=== PATIENT | male | born 1960 | race Caucasian/White ===

== ENCOUNTER 2019-08-03 21:22 | Inpatient (IN) | payer OTHER ==
[~2019-08-03] VITALS: Ht 167.6 cm; Wt 112.5 kg
[2019-08-03 21:28] VITALS: Ht 167.6 cm; Wt 112.5 kg
[2019-08-03 22:21] LABS: BASOPHIL % 0.4 % (0-2); PLATELET COUNT 192 x10^3mcL (130-400); RED CELL DISTRIBUTION WIDTH 15.2 % (11.5-14.5)
[2019-08-03 22:59] LABS: CALCIUM 8.1 mg/dL (8.5-10.1); CARBON DIOXIDE 26.8 mmol/L (21-32); CHLORIDE SERUM 106 mmol/L (98-107); CREATININE SERUM 1.1 mg/dL (0.7-1.3); GFR1 > 60 mL/min; GLUCOSE SERUM 130 mg/dL (74-106); POTASSIUM SERUM 3.7 mmol/L (3.5-5.1); SODIUM SERUM 144 mmol/L (136-145)
[2019-08-03 23:04] LABS: ALKALINE PHOSPHATASE 110 U/L (46-116); ALT/SGPT 29 U/L (16-63); AST/SGOT 21 U/L (15-37); BILIRUBIN TOTAL 0.4 mg/dL (0.20-1.00); TOTAL PROTEIN, SERUM 7.6 g/dL (6.4-8.2)
[2019-08-03 23:05] LABS: ALBUMIN 3.3 g/dL (3.4-5.0)
[2019-08-03 23:48] LABS: UA SPECIFIC GRAVITY 1.025 (1.005-1.035); microscopic required? YES; urine erythrocyte TRACE (NEGATIVE)
[2019-08-04] VITALS (9 sets, daily range): BP systolic 112–171; BP diastolic 46–84
[2019-08-04] MEDS ORDERED: ATENOLOL25 MG PO
[2019-08-04 01:36] LABS: MAGNESIUM 1.9 mg/dL (1.8-2.4)
[2019-08-04 01:43] LABS: CHOLESTEROL/HDL RATIO 6.4
[2019-08-04 01:46] LABS: FREE T4 0.97 ng/dL (0.76-1.46); FREE THYROXINE INDEX 2.7 ug/dL (1.4-4.5); T4(THYROXINE) 7.4 ug/dL (4.7-13.3)
[2019-08-04 02:36] LABS: T3 TOTAL 0.97 ng/mL
[2019-08-04 06:30] LABS: BASOPHIL % 0.3 % (0-2); PLATELET COUNT 170 x10^3mcL (130-400)
[2019-08-04 07:01] LABS: CHLORIDE SERUM 108 mmol/L (98-107); POTASSIUM SERUM 3.8 mmol/L (3.5-5.1); SODIUM SERUM 145 mmol/L (136-145)
[2019-08-04 07:02] LABS: CALCIUM 8.3 mg/dL (8.5-10.1); CARBON DIOXIDE 27.5 mmol/L (21-32); CREATININE SERUM 0.9 mg/dL (0.7-1.3); GFR1 > 60 mL/min; GLUCOSE SERUM 117 mg/dL (74-106); PHOSPHOROUS 3.6 mg/dL (2.5-4.9)
[2019-08-04 07:05] LABS: RED CELL DISTRIBUTION WIDTH 15.1 % (11.5-14.5)
[2019-08-04 07:30] LABS: AMPHETAMINE QUAL UR NONE DETECTED (See below)
== END 2019-08-04 21:07 | disposition short-term general hospital (02) | DRG 311 ==
LOC: ED 21:22 → DU 23:25
PROVIDERS: Emergency Medicine; Internal Medicine; ADMIT Hospitalist
DX: I20.9 Angina pectoris, unspecified (principal); E44.1 Mild protein-calorie malnutrition; Z68.41 Body mass index [BMI] 40.0-44.9, adult; D64.9 Anemia, unspecified; I10 Essential (primary) hypertension; G40.909 Epilepsy, unspecified, not intractable, without status epilepticus; E11.9 Type 2 diabetes mellitus without complications; E66.01 Morbid (severe) obesity due to excess calories; Z79.84 Long term (current) use of oral hypoglycemic drugs
CPT/HCPCS: 82962; 83880; 84439; 87804; G0378; J7030